=== PATIENT | male | born 1985 | race American Indian/Alaskan Native ===

== ENCOUNTER 2020-02-26 00:41 | Emergency (ER) | payer SELFPAY ==
[2020-02-26 01:13] VITALS: BP 110/69
--- NOTE | 2020-02-26 02:01 | XRay Report ---
CHEST 2 VIEWS INDICATION / CLINICAL INFORMATION: chestpain. COMPARISON: None available. FINDINGS: SUPPORT DEVICES: None. HEART / MEDIASTINUM: No significant abnormality. LUNGS / PLEURA: No significant pulmonary or pleural abnormality. No pneumothorax. ADDITIONAL FINDINGS: No significant additional findings. IMPRESSION: 1. No acute findings. Signer Name: Toby Dickson MD Signed: 02/26/2020 1:57 AM Workstation Name: [id number]
--- NOTE | 2020-02-26 02:34 | Emergency Department Report ---
- General Chief Complaint: Chest Pain Stated Complaint: (L) ARM PAIN/CHEST PAIN Time Seen by Provider: 02/26/20 02:12 Source: patient Mode of arrival: Ambulatory Limitations: No Limitations - History of Present Illness Initial Comments: 34-year-old F [place] male presents emergency department complaining of a 4 to 5-month history of a cough and with associated chest ache while coughing and also about a 4-month history of left shoulder pain which is worse with with with range of motion he has a strong suspicion of having any in an injury to the shoulder but never get it checked out decided to get checked out tonight primarily because he was in the hospital today with his aunt who is here for another reason. He reports no fever, no chills, no sweats, no nausea, no vomiting, coryza. No multisystem hematemesis no hematochezia. Severity: mild Quality: dull Consistency: constant - Related Data Previous Rx's Medication Instructions Recorded Last Taken Type Ketorolac [Toradol] 10 mg PO Q6H PRN #10 tablet 02/26/20 Unknown Rx Allergies Allergy/AdvReac Type Severity Reaction Status Date / Time No Known Allergies Allergy Unverified 02/26/20 01:20 ED Review of Systems ROS: Stated complaint: (L) ARM PAIN/CHEST PAIN Other details as noted in HPI Comment: All other systems reviewed and negative ED Past Medical Hx - Past Medical History Previous Medical History?: No - Surgical History Past Surgical History?: No - Social History Smoking Status: Current Every Day Smoker Substance Use Type: Marijuana - Medications Home Medications: Home Medications Medication Instructions Recorded Confirmed Last Taken Type Ketorolac [Toradol] 10 mg PO Q6H PRN #10 tablet 02/26/20 Unknown Rx ED Physical Exam - General Limitations: No Limitations General appearance: alert, in no apparent distress - Head Head exam: Present: atraumatic, normocephalic - Eye Eye exam: Present: normal appearance - ENT ENT exam: Present: mucous membranes moist - Neck Neck exam: Present: normal inspection - Respiratory Respiratory exam: Present: normal lung sounds bilaterally. Absent: respiratory distress - Cardiovascular Cardiovascular Exam: Present: regular rate, normal rhythm. Absent: bradycardia, tachycardia, normal heart sounds, systolic murmur, diastolic murmur, rubs, gallop - GI/Abdominal GI/Abdominal exam: Present: soft, normal bowel sounds - Rectal Rectal exam: Present: deferred - Extremities Exam Extremities exam: Present: normal inspection, tenderness (Mild pain with Enoree's test. No sulcus sign some discomfort with Burks test to Neer test is normal. Full range of motion is noted strength is 5 of 5 no suggestion of any AC separation) - Back Exam Back exam: Present: normal inspection. Absent: CVA tenderness (R), CVA tenderness (L) - Neurological Exam Neurological exam: Present: alert, oriented X3 - Psychiatric Psychiatric exam: Present: normal affect, normal mood - Skin Skin exam: Present: warm, dry, intact, normal color. Absent: rash ED Course Vital Signs 02/26/20 00:59 Temperature 98.3 F Pulse Rate 70 Respiratory 18 Rate Blood Pressure 110/69 O2 Sat by Pulse 95 Oximetry ED Medical Decision Making - Radiology Data Radiology results: report reviewed [facility] [address] [place] [address] XRay Report Signed Patient: NICKOLAS PEREZ MR#: [id number] : 1985 Acct:[id number] Age/Sex: 34 / M ADM Date: 02/26/20 Loc: ED Attending Dr: Ordering Physician: ED MD ESTHER Date of Service: 02/26/20 Procedure(s): XR chest routine 2V Accession Number(s): [id number] cc: ED MD ESTHER Fluoro Time In Minutes: CHEST 2 VIEWS INDICATION / CLINICAL INFORMATION: chestpain. COMPARISON: None available. FINDINGS: SUPPORT DEVICES: None. HEART / MEDIASTINUM: No significant abnormality. LUNGS / PLEURA: No significant pulmonary or pleural abnormality. No pneumothorax. ADDITIONAL FINDINGS: No significant additional findings. IMPRESSION: 1. No acute findings. Signer Name: Toby Dickson MD Signed: 02/26/2020 1:57 AM Workstation Name: [id number] Transcribed By: TL Dictated By: Toby Dickson MD Electronically Authenticated By: Toby Dickson MD Signed Date/Time: 02/26/20156 DD/ 5 TD/TT: Critical care attestation.: If time is entered above; I have spent that time in minutes in the direct care of this critically ill patient, excluding procedure time. ED Disposition Clinical Impression: Chronic chest pain, Shoulder strain Disposition: DC-01 TO HOME OR SELFCARE Is pt being admited?: No Does the pt Need Aspirin: No Condition: Stable Instructions: Chest Pain (ED), Shoulder Sprain (ED), Rotator Cuff Injury (ED), Magnetic Resonance Imaging (ED) Prescriptions: Ketorolac [Toradol] 10 mg PO Q6H PRN #10 tablet PRN Reason: Pain Referrals: NELI CABALLERO MD [Staff Physician] - 3-5 Days
== END 2020-02-26 03:04 | disposition home or self-care (01) ==
LOC: ED 00:41
DX: S46.812A Strain of other muscles, fascia and tendons at shoulder and upper arm level, left arm, initial encounter (principal); F17.200 Nicotine dependence, unspecified, uncomplicated; F12.10 Cannabis abuse, uncomplicated; X58.XXXA Exposure to other specified factors, initial encounter; Y93.89 Activity, other specified; Y92.89 Other specified places as the place of occurrence of the external cause; Y99.8 Other external cause status
CPT/HCPCS: 71046; 93005; 99283